=== PATIENT | male | born 1940 | race Caucasian/White ===

== ENCOUNTER 2022-05-31 13:22 | Emergency (ER) | payer MEDICARE, SELFPAY ==
--- NOTE | ~2022-05-31 | XR_ITS ---
EXAMINATION: XR knee RT min 4V DATE: 05/31/2022 13:55 INDICATION: Anterior and medial right knee pain 2 weeks post twisting injury TECHNIQUE: Anteroposterior, 2 oblique and sunrise and crosstable lateral views of the right knee were obtained COMPARISON: None. FINDINGS: Alignment is normal. No fracture. No joint effusion/layering lipohemarthrosis. Joint spaces appear r elatively preserved on nonweightbearing imaging. Small enthesophytes at the proximal pole of the gotti lla and at the anterior tibial tuberosity. Small corticated loose body versus heterotopic ossicle pro jecting at the inferior aspect of Hoffa's fat pad along the anterior margin of the tibial plateau. Sc attered atherosclerotic calcification is along the arteries at the distal thigh and proximal calf. So ft tissues are unremarkable. IMPRESSION: 1. No right knee joint effusion or acute osseous abnormality. Reviewed, dictated and finalized at location A.
[2022-05-31 13:36] VITALS: BP 164/45; PULSE 63; RESP 16; TEMP 36.8; O2SAT 98
--- NOTE | 2022-05-31 14:14 | ED.GENADULT ---
HPI - General Adult General Stated complaint: Sharp pain in right knee Time Seen by Provider: 05/31/22 13:27 Source: patient and family Mode of arrival: ambulatory Limitations: no limitations History of Present Illness HPI narrative: Patient presents for evaluation of right knee pain for the last 2 weeks. He indicates he was carrying groceries when he lost his balance. He fell into [place]. He landed on his buttocks. He did not hit his head. No LOC. He attempted to turn over to get up and felt a pain in his right knee. He does not actually hit his knee against the ground. He reports 7 out of 10 pain in the right knee, described as aching, worse with movement. Baseline functional status is ambulatory with a cane. This is unchanged. He took tylenol for pain but it did not make a considerable difference in his symptoms. He states he cannot take NSAIDs due to kidney disease. Related Data Home Medications Medication Instructions Recorded Confirmed atorvastatin 40 mg tablet mg 05/31/22 calcitriol 0.25 mcg capsule mcg 05/31/22 carvedilol 6.25 mg tablet mg 05/31/22 clopidogrel 75 mg tablet mg 05/31/22 escitalopram oxalate 10 mg tablet mg 05/31/22 ezetimibe 10 mg tablet mg 05/31/22 hydralazine 25 mg tablet mg 05/31/22 isosorbide mononitrate 60 mg mg PO 05/31/22 tablet,extended release 24 hr levothyroxine 100 mcg tablet mcg 05/31/22 levothyroxine 112 mcg tablet mcg 05/31/22 (Euthyrox) nifedipine 60 mg tablet,extended mg PO 05/31/22 release 24 hr torsemide 20 mg tablet mg 05/31/22 Allergies Allergy/AdvReac Type Severity Reaction Status Date / Time Penicillins Allergy Unknown Unknown Verified 05/31/22 14:14 Review of Systems Review of Systems: CONSTITUTIONAL: Denies fever, chills, or sweats. EYES: Denies visual changes, redness, or discharge. ENT: Denies rhinorrhea, congestion, sore throat, or otalgia. CARDIOVASCULAR: Denies chest pain, palpitations, or edema. RESPIRATORY: Denies cough or dyspnea. GASTROINTESTINAL: Denies abdominal pain, nausea, vomiting, or diarrhea. GENITOURINARY: Denies dysuria or hematuria. SKIN: Denies rash or itching. MUSCULOSKELETAL:Reports right knee pain. NEUROLOGIC: Denies headache, numbness, dizziness, or weakness. PSYCHIATRIC: Denies anxiety or depression. [facility] Past Medical History Medical History (Updated 05/31/22 @ 14:25 by JAIRO Galvez, ) Chronic kidney disease Depression Encounter regarding vascular access for dialysis for end-stage renal disease Hyperlipidemia Hypertension Hypothyroidism Strain of right knee Stroke Family History Family History Mother Family history non-contributory Social History Social History Alcohol intake: never Substance use: never Living arrangements: with family Gender identity (if verbalized by the patient): Male Sexual Orientation (if Verbalized by the Patient): Straight or Heterosexual Spiritual care concerns: No Exam Narrative: GENERAL: Well-appearing, well-nourished, and in no acute distress. HEAD: Normocephalic, atraumatic. EYES: PERRLA and EOMI. ENT: Nares clear, no rhinorrhea or epistaxis. Mucous membranes moist. Oropharynx without tonsillar hypertrophy exudate or other lesions. Bilateral TMs pearly cornejo nonbulging NECK: Supple. No adenopathy or masses. No carotid bruits or JVD CHEST: Clear to auscultation. No respiratory distress. No wheezes rales or rhonchi HEART: Regular rate and rhythm. No murmur heard. Normal peripheral pulses. ABDOMEN: Soft, nontender, nondistended, normal active bowel sounds. EXTREMITIES: Right knee is tender to palpation. There is trace swelling noted. No deformity. Full ROM Intact. No joint laxity. SKIN: Warm, dry, no rash. NEURO: No focal deficits. Alert and oriented x3. PSYCH: Normal mood and affect. Course Course Emergency Course:
== END 2022-05-31 14:15 | disposition home or self-care (01) ==
PROVIDERS: Emergency Provider Nurse Practitioner; PCP Internal Medicine
DX: S86.911A Strain of unspecified muscle(s) and tendon(s) at lower leg level, right leg, initial encounter (principal); W19.XXXA Unspecified fall, initial encounter; E78.5 Hyperlipidemia, unspecified; E03.9 Hypothyroidism, unspecified; Z86.73 Personal history of transient ischemic attack (TIA), and cerebral infarction without residual deficits; I12.9 Hypertensive chronic kidney disease with stage 1 through stage 4 chronic kidney disease, or unspecified chronic kidney disease; N18.9 Chronic kidney disease, unspecified
CPT/HCPCS: 73564; 99213; G0463